=== PATIENT | female | born 1995 | race African-American/Black ===

== ENCOUNTER 2022-04-14 18:11 | Day surgery (SDC) | payer OTHER ==
[2022-04-14] MEDS ORDERED: hydrALAZINE 20 MG/ML VIAL SLOW IVP PRN (18:35)
[2022-04-14] MEDS ORDERED: Lactated Ringer's 1,000 ML IV SCH ×2 (18:45→21:30)
[2022-04-14] MEDS ORDERED: Lidocaine 1% (PF) 30 ML VIAL ONE (19:03)
[2022-04-14 19:22] VITALS: BMI 31.8
[2022-04-14 19:24] LABS: #Basophils 0.1 10x3/uL (0.0-0.2); #Eosinphils 0.1 10x3/uL (0.0-0.5); #Monocytes 0.8 10x3/uL (0.0-1.1); %Basophils 0.5 % (0.0-2.0); %Eosinophils 0.4 % (0.0-6.0); %Lymphocytes 11.6 % (18.0-47.0); %Monocytes 5.1 % (0.0-10.0); %Neutrophils 81.7 % (40.0-75.0); Hemoglobin 10.3 g/dL (12.0-15.5); Mean Corpuscular Hemoglobin 22.8 pg (27.0-33.0); Mean Corpuscular Volume 71.2 fl (81.6-98.3); Platelet Count 325 10x3/uL (150-450); RBC Distribution Width 16.3 % (11.5-14.5); Red Blood Cell (RBC) Count 4.52 10x6/uL (3.90-5.03); White Blood Cell (WBC) Count 14.7 10x3/uL (3.5-10.5)
[2022-04-14 19:32] LABS: ALT (SGPT) 23 U/L (8-55); AST (SGOT) 42 U/L (5-34); Albumin 3.6 g/dL (3.5-5.0); Alkaline Phosphatase 115 U/L (40-110); Anion Gap 15 mmol/L (10-20); BUN (Urea Nitrogen) 6 mg/dL (7.0-18.7); Bilirubin, Total 0.2 mg/dL (0.2-1.2); Calc. Creatinine Clearance 188 mL/min (70-130); Calcium 9.1 mg/dL (7.8-10.44); Carbon Dioxide 17 mmol/L (22-29); Chloride 106 mmol/L (98-107); Estimated GFR 128; Globulin 3.6 g/dL (2.4-3.5); Glucose 84 mg/dL (70-105); Lipase 20 U/L (8-78); Potassium 4.4 mmol/L (3.5-5.1); Protein, Total 7.2 g/dL (6.0-8.3); Sodium 134 mmol/L (136-145)
[2022-04-14] MEDS ORDERED: Lidocaine 2% Viscous Solution 10 ML, Aluminum & Magnesium Hydroxide 30 ML SSW SCH (20:00)
[2022-04-14 20:20] LABS: Bilirubin Neg (Negative); Blood, Urine Negative (Negative); Clarity Clear (Clear); Glucose, Urine (Dipstick) Normal (Negative); Ketone, Urine Negative (Negative); Leukocyte Negative (Negative); Nitrite Negative (Negative); Protein, Urine (Dipstick) Negative (Neg-Trace); Specific Gravity, Urine 1.005 (1.005-1.030); Urobilinogen Normal mg/dL (Less than 2)
[2022-04-14 21:00] LABS: Fetal Fibronectin Negative (Negative)
[2022-04-14 21:01] LABS: FFN Internal QC Analyzer PASS (PASS); FFN Internal QC Cassette PASS (PASS)
[2022-04-14 21:03] LABS: CAUTI Indications for Culture Pregnancy; RBC/HPF 0-3 HPF (0-3); Squamous Epithelial 0-3 HPF (0-3); WBC/HPF 0-3 HPF (0-3)
[2022-04-14 21:04] LABS: Bacteria/HPF Rare-Few HPF (None Seen)
[2022-04-14 21:06] LABS: SARS-CoV-2 NAA Rapid Test Not Detected (NotDetected)
[2022-04-14 21:06] LABS: Urine Culture Reflex Yes Yes
[2022-04-14] MEDS ORDERED: Morphine 4 MG/ML VIAL SLOW IVP PRN (21:18)
== END 2022-04-14 22:20 | disposition home or self-care (01) ==
LOC: CSHLD/OP 18:11
PROVIDERS: ATTEND Obstetrics & Gynecology
DX: O26.892 Other specified pregnancy related conditions, second trimester (principal); R10.30 Lower abdominal pain, unspecified; O23.592 Infection of other part of genital tract in pregnancy, second trimester; B96.89 Other specified bacterial agents as the cause of diseases classified elsewhere; Z79.899 Other long term (current) drug therapy; Z20.822 Contact with and (suspected) exposure to COVID-19; Z3A.25 25 weeks gestation of pregnancy
CPT/HCPCS: 36415; 76705; 76815; 80053; 81001; 82731; 83690; 85025; 87086; 87480; 87510; 87660; J2001